=== PATIENT | male | born 1995 | race Caucasian/White ===

== ENCOUNTER 2020-12-30 10:45 | Emergency (ER) | payer BC ==
[~2020-12-30] VITALS: Ht 182.9 cm; Wt 123.6 kg
[2020-12-30] MEDS ORDERED: KETOROLAC 15 MG/ML VIAL. IVP ONE (11:15)
[2020-12-30] MEDS ORDERED: METOCLOPRAMIDE HCL 10 MG/2 ML VIAL. IVP ONE (11:15)
[2020-12-30] MEDS ORDERED: IV NORMAL SALINE 1,000ML 1,000 ML IV ONE (11:15)
--- NOTE | 2020-12-30 11:24 | RAD ---
Axial CT images of the abdomen and pelvis with coronal and sagittal reformats were performed without contrast per renal colic protocol. Exposure: One or more of the following individualized dose reduction techniques were utilized for thi s examination: 1. Automated exposure control 2. Adjustment of the mA and/or kV according to patient size 3. Use of iterative reconstruction technique Indication: Reason: left flank pain eval for kidney stone / Spl. Instructions: / History: Comparison: None. Findings: No renal, ureteral, or bladder stones are identified. No hydronephrosis, perinephric fat stranding, or hydroureter are seen bilaterally. There is reactive retroperitoneal adenopathy. There is significant inflammation in the pelvis. Multip le diverticula are identified. Findings consistent with diverticulitis. Additionally there does appea r to be a perforation with an air-fluid level identified in the anterior pelvis measuring approximate ly 4.0 x 3.2 cm. There is associated inflammation the bladder The remainder of the non contrasted abd omen and pelvis is normal in appearance, although evaluation is limited on an unenhanced exam. Impression: 1. Findings consistent with diverticulitis with perforation and small air-fluid collection which is l ikely an abscess. There is reactive retroperitoneal lymphadenopathy, inflammation of the mesentery of the pelvis as wel l as reactive inflammation or urinary bladder. Electronically signed by: Bishnu Mckenzie MD (12/30/2020 11:22 AM) [id number]
[2020-12-30 11:39] LABS: BASO # 0.1 x10^3/uL (0.0-0.2); BASO % 0 % (0-3); EOS % 0 % (0-3); HEMATOCRIT 38.6 % (39.0-53.0); HEMOGLOBIN 13.1 g/dL (13.0-17.5); LYMPH # 1.3 x10^3/uL (1.0-4.8); LYMPH % 8 % (24-48); MEAN CORPUSCULAR HEMOGLOBIN 28 pg (25-35); MEAN CORPUSCULAR HGB CONC 34 g/dL (31-37); MEAN CORPUSCULAR VOLUME 83 fL (79-100); MONO # 1.3 x10^3/uL (0.0-1.1); MONO % 8 % (0-9); NEUT # 13.2 x10^3uL (1.8-7.7); NEUT % 83 % (31-73); PLATELET COUNT 354 x10^3/uL (140-400); RED BLOOD COUNT 4.67 x10^6/uL (4.30-5.70); RED CELL DISTRIBUTION WIDTH 12.7 % (11.5-14.5); WHITE BLOOD COUNT 15.8 x10^3/uL (4.0-11.0)
[2020-12-30] MEDS ORDERED: PIPERACILLIN/TAZOBACTAM 3.375 GM in IV NORMAL SALINE 50ML 50 ML IV ONE (11:45)
[2020-12-30] MEDS ORDERED: IV NORMAL SALINE 50ML 50 ML ONE (11:59)
[2020-12-30] MEDS ORDERED: PIPERACILLIN/TAZOBACTAM 3.375 GM VIAL IV ONE (11:59)
--- NOTE | 2020-12-30 12:03 | PHYS DOC ---
Past History Past Surgical History: No Surgical History Alcohol Use: None General Adult EDM: Chief Complaint: ABDOMINAL PAIN HPI: HPI: Patient is a [age] year old [sex] who presents with [] Review of Systems: Review of Systems: Constitutional: Denies fever or chills Eyes: Denies redness or eye pain HENT: Denies nasal congestion or sore throat Respiratory: Denies cough or shortness of breath Cardiovascular: Denies chest pain or palpitations GI: Denies abdominal pain, nausea, or vomiting : Denies dysuria or hematuria Musculoskeletal: Denies back pain or joint pain Integument: Denies rash or skin lesions Neurologic: Denies headache, focal weakness or sensory changes Complete systems were reviewed and found to be within normal limits, except as documented in this note. Current Medications: Current Meds: Current Medications Medications (Trade) Dose Ordered Sig/Mauricio Start Time Stop Time Status Last Admin Dose Admin Ketorolac Tromethamine (Toradol 15mg Vial) 15 mg 1X ONCE 12/30/20 11:15 12/30/20 11:16 DC 12/30/20 11:21 15 MG Metoclopramide HCl (Reglan Vial) 10 mg 1X ONCE 12/30/20 11:15 12/30/20 11:16 DC 12/30/20 11:20 10 MG Piperacillin Sod/ Tazobactam Sod (Zosyn) 3.375 gm STK-MED ONCE 12/30/20 11:59 12/30/20 11:59 DC Piperacillin Sod/ Tazobactam Sod 3.375 gm/Sodium Chloride 50 ml @ 100 mls/hr 1X ONCE 12/30/20 11:45 12/30/20 12:14 Sodium Chloride 50 ml @ As Directed STK-MED ONCE 12/30/20 11:59 12/30/20 11:59 DC Allergies: Allergies: Allergies Coded Allergies Type Severity Reaction Last Updated Verified No Known Drug Allergies 12/30/20 No Physical Exam: PE: Constitutional: Well developed, well nourished, no acute distress, non-toxic ap pearance HENT: Normocephalic, atraumatic Eyes: PERRL, EOMI, conjunctiva normal, no discharge Neck: Normal range of motion, no tenderness, supple Lungs & Thorax: No respiratory distress, equal chest rise and fall Abdomen: Soft, no tenderness Skin: Warm, dry, no erythema, no rash Back: No tenderness, no CVA tenderness Extremities: No tenderness, ROM intact, no edema Neurologic: Alert and oriented X 3, normal motor function, normal sensory function, no focal deficits noted Psychologic: Affect normal, judgment normal Current Patient Data: Labs: Laboratory Tests Test 12/30/20 11:20 White Blood Count 15.8 x10^3/uL (4.0-11.0) H Red Blood Count 4.67 x10^6/uL (4.30-5.70) Hemoglobin 13.1 g/dL (13.0-17.5) Hematocrit 38.6 % (39.0-53.0) L Mean Corpuscular Volume 83 fL (79-100) Mean Corpuscular Hemoglobin 28 pg (25-35) Mean Corpuscular Hemoglobin Concent 34 g/dL (31-37) Red Cell Distribution Width 12.7 % (11.5-14.5) Platelet Count 354 x10^3/uL (140-400) Neutrophils (%) (Auto) 83 % (31-73) H Lymphocytes (%) (Auto) 8 % (24-48) L Monocytes (%) (Auto) 8 % (0-9) Eosinophils (%) (Auto) 0 % (0-3) Basophils (%) (Auto) 0 % (0-3) Neutrophils # (Auto) 13.2 x10^3uL (1.8-7.7) H Lymphocytes # (Auto) 1.3 x10^3/uL (1.0-4.8) Monocytes # (Auto) 1.3 x10^3/uL (0.0-1.1) H Eosinophils # (Auto) 0.0 x10^3/uL (0.0-0.7) Basophils # (Auto) 0.1 x10^3/uL (0.0-0.2) Platelet Estimate Pending Vital Signs: Vital Signs Date Time Temp Pulse Resp B/P (MAP) Pulse Ox O2 Delivery O2 Flow Rate FiO2 12/30/20 10:48 98.9 121 16 140/88 97 Room Air EKG: EKG: [] Radiology/Procedures: Radiology/Procedures: PROCEDURE: CT ABDOMEN PELVIS WO CONTRAST Axial CT images of the abdomen and pelvis with coronal and sagittal reformats were performed without contrast per renal colic protocol. Exposure: One or more of the following individualized dose reduction techniques were utilized for this examination: 1. Automated exposure control 2. Adjustment of the mA and/or kV according to patient size 3. Use of iterative reconstruction technique Indication: Reason: left flank pain eval for kidney stone / Spl. Instructions: / History: Comparison: None. Findings: No renal, ureteral, or bladder stones are identified. No hydronephrosis, perinephric fat stranding, or hydroureter are seen bilaterally. There is reactive retroperitoneal adenopathy. There is significant inflammation in the pelvis. Multiple diverticula are identified. Findings consistent with diverticulitis. Additionally there does appear to be a perforation with an air- fluid level identified in the anterior pelvis measuring approximately 4.0 x 3.2 cm. There is associated inflammation the bladder The remainder of the non contrasted abdomen and pelvis is normal in appearance, although evaluation is limited on an unenhanced exam. Impression: 1. Findings consistent with diverticulitis with perforation and small air-fluid collection which is likely an abscess. There is reactive retroperitoneal lymphadenopathy, inflammation of the mesentery of the pelvis as well as reactive inflammation or urinary bladder. Electronically signed by: Bishnu Mckenzie MD (12/30/2020 11:22 AM) [id number] Heart Score: C/O Chest Pain: N/A Course & Med Decision Making: Course & Med Decision Making Pertinent Labs and Imaging studies reviewed. (See chart for details) Patient requiring transfer to higher level facility with general surgery and interventional radiology for further evaluation and treatment. Discussed with Dr. Ledesma (hospitalist at [facility]) who is in agreement with transfer for admission. Discussed findings and plan with patient, who acknowledges understanding and agreement. Sanchez Disclaimer: Sanchez Disclaimer: This electronic medical record was generated, in whole or in part, using a voice recognition dictation system. Departure Departure: Impression: Primary Impression: Perforated diverticulum of large intestine Additional Impression: Intra-abdominal abscess Disposition: 02 SHORT TERM HOSPITAL ([facility]- Dr. Ledesma accepting) Condition: STABLE Referrals: PCP,MITCH (PCP) ANDREW LEONARDO DO Dec 30, 2020 12:03
[2020-12-30 12:37] LABS: ALBUMIN 2.9 g/dL (3.4-5.0); ALBUMIN/GLOBULIN RATIO 0.6 (1.0-1.7); CALCIUM 8.5 mg/dL (8.5-10.1); POTASSIUM 3.8 mmol/L (3.5-5.1); TOTAL BILIRUBIN 1.3 mg/dL (0.2-1.0); TOTAL PROTEIN 7.4 g/dL (6.4-8.2)
[2020-12-30 13:18] LABS: % BANDS 4 % (0-9); % BASOS 1 % (0-3); % LYMPHS 10 % (24-48); % MONOS 5 % (0-10); % SEGS 80 % (35-66)
[2020-12-30 13:19] LABS: PLT ESTIMATE ADEQUATE (ADEQUATE)
[2020-12-30 15:00] VITALS: BP 143/84
== END 2020-12-30 16:00 | disposition short-term general hospital (02) ==
LOC: ER 10:45
DX: K57.20 Diverticulitis of large intestine with perforation and abscess without bleeding (principal); K65.1 Peritoneal abscess; Z20.822 Contact with and (suspected) exposure to COVID-19
CPT/HCPCS: 36415; 74176; 80053; 83605; 83690; 83735; 85007; 85025; 87040; 96361; 96365; 96375; 99285; C9803; J1885; J2543; J2765; J7030; U0003

== ENCOUNTER 2021-04-15 22:28 | Emergency (ER) | payer OTHER, BC ==
[~2021-04-15] VITALS: Ht 182.9 cm; Wt 121.8 kg
[2021-04-15] MEDS ORDERED: KETOROLAC 60 MG/2 ML VIAL. IM ONE ×2 (22:45→23:45)
[2021-04-15 22:56] VITALS: BP 141/81
--- NOTE | 2021-04-15 23:47 | PHYS DOC ---
Past History Past Surgical History: Tonsillectomy, Other Additional Past Surgical Histo: Adenoidectomy, abdominal drain Alcohol Use: None General Adult EDM: Chief Complaint: KNEE INJURY HPI: HPI: ".. I was walking by the showers.. on Cell block A and Level A1 . and slipped and fell on my Rt. knee.. it been really sore ..since then.. " Patient is a 25 year old Male [employer] employee who presents with above history and complaints right knee contusion when he slipped on the floor while control of cellblock A. Patient is able do straight leg lift. Does have pain when he flexes knee. Pain localized primarily to the patella area. There is obvious edema and ballottement. No obvious peripheral vascular changes. Patient denies previous injury to right knee. Review of Systems: Review of Systems: Constitutional: Denies fever or chills Eyes: Denies change in visual acuity HENT: Denies nasal congestion or sore throat Respiratory: Denies cough or shortness of breath Cardiovascular: Denies chest pain or edema GI: Denies abdominal pain, nausea, vomiting, bloody stools or diarrhea : Denies dysuria Musculoskeletal: Complains of right knee pain Integument: Denies rash Neurologic: Denies headache, focal weakness or sensory changes Endocrine: Denies polyuria or polydipsia Lymphatic: Denies swollen glands Psychiatric: Denies depression or anxiety Family History: Family History: Non-contributory Current Medications: Current Meds: See nursing for home meds Current Medications Medications (Trade) Dose Ordered Sig/[facility] Start Time Stop Time Status Last Admin Dose Admin Ketorolac Tromethamine (Toradol Im) 60 mg 1X ONCE 04/15/21 22:45 04/15/21 22:46 DC 04/15/21 23:04 60 MG Allergies: Allergies: Allergies Coded Allergies Type Severity Reaction Last Updated Verified adhesive tape Allergy Unknown 04/15/21 Yes Physical Exam: PE: Constitutional: Well developed, well nourished, moderate acute distress, non- toxic appearance. [] HENT: Normocephalic, atraumatic, bilateral external ears normal, oropharynx moist, no oral exudates, nose normal. [] Eyes: PERRLA, EOMI, conjunctiva normal, no discharge. [] Neck: Normal range of motion, no tenderness, supple, no stridor. [] Cardiovascular:Heart rate regular rhythm, no murmur [] Lungs & Thorax: Bilateral breath sounds clear to auscultation [] Abdomen: Bowel sounds normal, soft, no tenderness, no masses, no pulsatile masses. [] Skin: Warm, dry, no erythema, no rash. [] Back: No tenderness, no CVA tenderness. [] Extremities: No tenderness, no cyanosis, no clubbing, ROM intact, no edema. Except findings in right knee as per HPI Neurologic: Alert and oriented X 3, normal motor function, normal sensory function, no focal deficits noted. [] Psychologic: Affect anxious, judgement normal, mood normal. [] Current Patient Data: Vital Signs: Vital Signs Date Time Temp Pulse Resp B/P (MAP) Pulse Ox O2 Delivery O2 Flow Rate FiO2 04/15/21 22:56 98.2 88 18 141/81 (101) 98 EKG: EKG: [] Radiology/Procedures: Radiology/Procedures: [][place] [address] IMAGING REPORT Signed PATIENT: MONIQUE CHRISTIAN ACCOUNT: [id number] : 1995 LOCATION: ER AGE: 25 SEX: M EXAM STATUS: DEP ER ORD. PHYSICIAN: ROBERT CANALES MD REASON: injury at work, right knee pain PROCEDURE: KNEE RIGHT 4V EXAM: XR KNEE 4 VIEWS WITH PATELLA_RT 04/15/2021 10:46 PM CLINICAL INDICATION: Right knee injury at work COMPARISON: None TECHNIQUE: 4 views of the right knee FINDINGS: No acute fracture. Alignment is normal. Joint spaces are maintained. Minimal joint effusion. No soft tissue abnormality. IMPRESSION: No acute osseous abnormality. Electronically signed by: Araceli Naylor MD (04/16/2021 12:32 AM) [facility] DICTATED AND SIGNED BY: ARACELI NAYLOR MD DATE: 04/16/2130 CC: ROBERT CANALES MD; PCP,NO ~MTH0 0 Heart Score: C/O Chest Pain: N/A Risk Factors: Risk Factors: DM, Current or recent (<one month) smoker, HTN, HLP, family history of CAD, obesity. Risk Scores: Score 0 - 3: 2.5% MACE over next 6 weeks - Discharge Home Score 4 - 6: 20.3% MACE over next 6 weeks - Admit for Clinical Observation Score 7 - 10: 72.7% MACE over next 6 weeks - Early Invasive Strategies Course & Med Decision Making: Course & Med Decision Making Pertinent Labs and Imaging studies reviewed. (See chart for details) Pt. use ice packs as needed. Wear Leonard wrap. Elevate knee. Follow-up Workmen's Comp. Return if any concerns. Consider follow-up with primary care. Consider follow-up with [facility] Ortho. Impression: 1. Right knee contusion [] Dragon Disclaimer: Dragon Disclaimer: This electronic medical record was generated, in whole or in part, using a voice recognition dictation system. Departure Departure: Impression: Primary Impression: Knee contusion Disposition: HOME / SELF CARE / HOMELESS Condition: GUARDED Patient Instructions: Knee Effusion, [id number] Additional Instructions: Wear leonard wrap. Take tylenol and ibuprofen for pain. Ice packs as needed. Follow up with work comp. Return if any concerns. Dragon Disclaimer This chart was dictated in whole or in part using Voice Recognition software in a busy, high-work load, and often noisy Emergency Department environment. It may contain unintended and wholly unrecognized errors or omissions. Dragon Disclaimer This chart was dictated in whole or in part using Voice Recognition software in a busy, high-work load, and often noisy Emergency Department environment. It may contain unintended and wholly unrecognized errors or omissions. ROBERT CANALES MD Apr 15, 2021 23:47
--- NOTE | 2021-04-16 00:35 | RAD ---
EXAM: XR KNEE 4 VIEWS WITH PATELLA_RT 04/15/2021 10:46 PM CLINICAL INDICATION: Right knee injury at work COMPARISON: None TECHNIQUE: 4 views of the right knee FINDINGS: No acute fracture. Alignment is normal. Joint spaces are maintained. Minimal joint effusio n. No soft tissue abnormality. IMPRESSION: No acute osseous abnormality. Electronically signed by: Araceli Naylor MD (04/16/2021 12:32 AM) [facility]
== END 2021-04-16 00:03 | disposition home or self-care (01) ==
LOC: ER 22:28
DX: S80.01XA Contusion of right knee, initial encounter (principal); Z88.8 Allergy status to other drugs, medicaments and biological substances; W01.0XXA Fall on same level from slipping, tripping and stumbling without subsequent striking against object, initial encounter; Y93.01 Activity, walking, marching and hiking; Y92.89 Other specified places as the place of occurrence of the external cause; Y99.8 Other external cause status
CPT/HCPCS: 73564; 96372; 99283; J1885